=== PATIENT | male | born 1980 | race Hispanic/Latino ===

== ENCOUNTER 2018-04-11 14:46 | Emergency (ER) | payer SELFPAY ==
[2018-04-11] MEDS ORDERED: HYDROcodone 5MG/APAP 325MG 1 EA TAB PO ONE (15:19)
--- NOTE | 2018-04-11 15:23 | ED.PDOC ---
History of Present Illness - General Chief Complaint: Laceration Stated Complaint: laceration to right thumb Time Seen by Provider: 04/11/18 15:13 Source: patient Exam Limitations: no limitations - History of Present Illness Initial Comments: PT WAS USING A SKILLSAW. HE CUT HIS R THUMB. PAINFUL. Occurred: just prior to arrival Severity: severe Pain Location: upper extremity Method of Injury: other - CUT BY SKILLSAW. Improving Factors: nothing Worsening Factors: movement Loss of Consciousness: no loss of consciousness Associated Symptoms (Fall): denies symptoms Allergies/Adverse Reactions: Allergies NO KNOWN ALLERGY Allergy (Verified 03/28/18 09:54) Home Medications: Ambulatory Orders Amoxicillin [Amoxil] 1,000 mg PO BID 03/28/18 Atorvastatin Calcium [Lipitor] 20 mg PO BEDTIME 03/28/18 Bifidobacterium Infantis [Align] 4 mg PO BID #60 capsule 03/28/18 Carvedilol 6.25 mg PO BID 03/28/18 Clarithromycin 500 mg PO BID 03/28/18 Lisinopril [Prinivil] 20 mg PO DAILY 03/28/18 Omeprazole 20 mg PO BID 03/28/18 Ondansetron HCl [Zofran] 4 mg PO Q6H PRN #15 tab 03/28/18 Cephalexin Monohydrate [Keflex] 500 mg PO BID #14 cap 04/11/18 Review of Systems - Review of Systems Constitutional: States: no symptoms reported EENTM: States: no symptoms reported Respiratory: States: no symptoms reported Cardiology: States: no symptoms reported Gastrointestinal/Abdominal: States: no symptoms reported Genitourinary: States: no symptoms reported Musculoskeletal: States: see HPI, other - PAIN IN DISTAL R THUMB. . Denies: joint pain Skin: States: other - LACERATION Neurological: States: other - PAIN. Denies: paresthesia, tingling Endocrine: States: no symptoms reported Hematologic/Lymphatic: States: no symptoms reported All other Systems: Reviewed and Negative Past Medical History (General) - Patient Medical History Hx Seizures: No Hx Stroke: No Hx Asthma: No Hx of COPD: No Hx Cardiac Disorders: Yes Hx Congestive Heart Failure: No Hx Pacemaker: No Hx Hypertension: Yes Hx Diabetes: No Hx Gastroesophageal Reflux: Yes Hx MRSA: No - Vaccination History Hx Tetanus, Diphtheria Vaccination: - unknown Hx Influenza Vaccination: No - Social History Hx Tobacco Use: No Hx Alcohol Use: No Hx Substance Use: No Hx Physical Abuse: No Hx Emotional Abuse: No Family Medical History - Family History Father Family History: Unknown Hx Family Hypertension: Yes - parents Hx Family Diabetes: Yes - mom Physical Exam - Physical Exam General Appearance: Alert, Obvious distress Head Injury: no evidence of injury Eye Exam: bilateral normal ENT Exam: hearing grossly normal, no evidence of ENT injury Neck Exam: normal inspection Neurologic: car whacker II-XII nml as tested, no motor/sensory deficits, alert Skin Exam: other - R THUMB, DISTAL PHALYNX, FULL THICKNESS AVULSION LACERATION OF VOLAR ASPECT, APPROX 2 X 2 CM DERMAL AND SUBDERMAL TISSUE NOW ABSENT. - [place] Coma Score Best Eye Response ([place]): (4) open spontaneously Best Verbal Response ([place]): (5) oriented Best Motor Response ([place]): (6) obeys commands [place] Total: 15 Progress - Progress Progress: 04/11/18 15:29 XRAY ORDERED TO EVALUATE FOR BONY INVOLVEMENT TO ASSESS DEPTH OF PENETRATION OF SAW BLADE. LAST TDAP UNKNOWN BUT PT THINKS > 5 YRS, THUS WILL UPDATE TODAY. 04/11/18 17:37 X-RAY NEG FOR BONY INVOLVEMENT. SOFT TISSUE DEFECT EXTENDS ALL THE WAY TO JUST SUPERFICIAL TO THE BONE. 04/11/18 17:46 KEFLEX X 1 WK PPX RX'D SINCE WOULD IS VERY DEEP. Procedures - Laceration/Wound Repair Right Finger Wound Length (cm): 2 Wound's Depth, Shape: into muscle, irregular Wound Explored: no foreign body removed Irrigated w/ Saline (cc's): 250 Betadine Prep?: No - ETOH AND HIBICLENZ Anesthesia: 1% Lidocaine Volume Anesthetic (cc's): 10 Wound Debrided: minimal Wound Repaired With: sutures Suture Size/Type: 4:0, vicryl rapide Number of Sutures: 3 - PLACED IN DEEP LAYER TO APPROXIMATE EDGES. THERE WAS NO SKIN PRESENT (AVULSED) THUS SUPERFICIAL SUTURE UNABLE TO BE PLACED. Deep Layer Suture Size/Type: 4:0, vicryl rapide Number Deep Layer Sutures: 3 Sterile Dressing Applied?: Yes - BACITRACIN AND TELFA PAD. Splint Applied?: No Sling Applied?: No Departure - Departure Clinical Impression: Pain of right thumb Avulsion of skin of right thumb Qualifiers: Encounter type: initial encounter Qualified Code(s): S61.001A - Unspecified open wound of right thumb without damage to nail, initial encounter Disposition: Discharge to Home or Self Care Condition: Good Departure Forms: ED Discharge - Pt. Copy, Patient Portal Self Enrollment Instructions: DI for Laceration Repair Diet: resume usual diet Activity: increase activity as tolerated Prescriptions: Cephalexin Monohydrate [Keflex] 500 mg PO BID #14 cap Home Medications: Ambulatory Orders Amoxicillin [Amoxil] 1,000 mg PO BID 03/28/18 Atorvastatin Calcium [Lipitor] 20 mg PO BEDTIME 03/28/18 Bifidobacterium Infantis [Align] 4 mg PO BID #60 capsule 03/28/18 Carvedilol 6.25 mg PO BID 03/28/18 Clarithromycin 500 mg PO BID 03/28/18 Lisinopril [Prinivil] 20 mg PO DAILY 03/28/18 Omeprazole 20 mg PO BID 03/28/18 Ondansetron HCl [Zofran] 4 mg PO Q6H PRN #15 tab 03/28/18 Cephalexin Monohydrate [Keflex] 500 mg PO BID #14 cap 04/11/18 Additional Instructions: Please twice per daily clean the wound as follows: Wash with soap and water. Towel dry. Apply bacitracin antibiotic ointment to the wound bed. Cover with a large band aid. Please wear gloves if you are working in a felipe or dirty environment to keep the would clean. Please follow-up with your regular doctor in 1 week to assess the healing progress.
[2018-04-11] MEDS ORDERED: TETANUS,DIPHTHERIA,PERTUSSIS 1 EA SYG IM ONE (15:34)
[2018-04-11] MEDS ORDERED: POVIDONE IODINE 10 % 15 ML UD TOP ONE (15:35)
--- NOTE | 2018-04-11 15:36 | RAD ---
Procedure: XR FINGERS , 3 views right thumb Exam Date: 04/11/2018 Ordering Provider: Harjeet Marrufo Clinical Indication: skill saw injury to right thumb Comparison: None Findings/impression: Soft tissue defect subjacent to the terminal tuft of the thumb. No acute fracture or dislocation. No radiopaque foreign bodies. Electronically signed by: Rico Clark MD 04/11/2018 3:35 PM CDT
[2018-04-11] MEDS ORDERED: LIDOCAINE 1% 10 ML VIAL INJ ONE (16:30)
[2018-04-11] MEDS ORDERED: CHLORHEXIDINE GLUCONATE 4 % 15 ML UD TOP ONE (16:53)
[2018-04-11] MEDS ORDERED: NEOMYCIN-BACITRACIN-POLYMYXIN 0.9 GM UD TOP ONE (17:33)
[2018-04-11] MEDS ORDERED: CEPHALEXIN MONOHYDRATE 500 MG CAP PO ONE (17:36)
[2018-04-11 18:07] VITALS: BP 146/94; TEMP 99; O2SAT 98
== END 2018-04-11 18:07 | disposition home or self-care (01) ==
LOC: ER 14:46
DX: S61.011A Laceration without foreign body of right thumb without damage to nail, initial encounter (principal); I10 Essential (primary) hypertension; K21.9 Gastro-esophageal reflux disease without esophagitis; Z23 Encounter for immunization; Z79.899 Other long term (current) drug therapy; W31.2XXA Contact with powered woodworking and forming machines, initial encounter; Y93.89 Activity, other specified; Y92.009 Unspecified place in unspecified non-institutional (private) residence as the place of occurrence of the external cause